=== PATIENT | female | born 1995 | race Caucasian/White ===

== ENCOUNTER 2017-05-13 21:26 | Emergency (ER) | payer OTHER ==
[~2017-05-13] VITALS: Ht 165.1 cm; Wt 90.9 kg
[2017-05-13] MEDS ORDERED: TRAZ-144 PO (21:36)
[2017-05-13] MEDS ORDERED: ALBU8HFA IH (21:36)
[2017-05-13] MEDS ORDERED: CYCL10 PO (21:36)
[2017-05-13 21:52] LABS: BASOPHILS % (AUTO) 0.3 % (0.0-2.0); EOSINOPHILS % (AUTO) 2.1 % (1.0-6.0); HEMATOCRIT 36.6 % (36-46); HEMOGLOBIN 12.3 g/dL (12.0-16.0); LYMPHOCYTES # (AUTO) 2.2 K/uL (1.0-4.8); MEAN CORPUSCULAR HEMOGLOBIN 27.3 pg (26.0-34.0); MEAN CORPUSCULAR HGB CONC 33.6 G/dL (31.0-37.0); MEAN CORPUSCULAR VOLUME 81 fL (80-100); MONOCYTES # (AUTO) 0.7 K/uL (0.1-1.0); NEUTROPHILS % (AUTO) 71.6 % (40.0-70.0); PLATELET COUNT (AUTO) 273 K/uL (150-450); RED CELL DISTRIBUTION WIDTH 14.2 % (11.5-14.5); WHITE BLOOD COUNT (AUTO) 11.1 K/uL (4.5-11.0)
[2017-05-13 21:59] LABS: ANION GAP 11 mmol/L (8-16); CALCIUM, TOTAL 9.2 mg/dL (8.8-10.5); CARBON DIOXIDE 25 mmol/L (22-29); CHLORIDE 99 mmol/L (98-107); CREATININE 0.83 mg/dL (0.60-1.30); GLOMERULAR FILTR. RATE CALC > 60 mL/min (>60); POTASSIUM 3.5 mmol/L (3.5-5.1); SODIUM SERUM 135 mmol/L (136-145); UREA NITROGEN, BLOOD 11 mg/dL (7-18)
[2017-05-13 22:01] LABS: PROTHROMBIN TIME 10.6 SEC (9.4-11.6)
[2017-05-13 22:05] LABS: ALANINE AMINOTRANSFERASE 24 U/L (12-78); ALBUMIN 4.3 g/dL (3.4-5.0); ASPARTATE AMINOTRANSFERASE 12 U/L (15-37); BILIRUBIN,TOTAL 0.4 mg/dL (0.1-1.0); TOTAL PROTEIN, SERUM 8.3 g/dL (6.4-8.2)
[2017-05-13 22:22] LABS: SALICYLATE < 2.8 mg/dL (2.8-20.0)
[2017-05-13 23:08] LABS: ACETAMINOPHEN < 2 mcg/mL (10-30)
[2017-05-14 01:30] VITALS: BP 135/66
== END 2017-05-14 02:37 | disposition home or self-care (01) ==
LOC: EMS 21:27
DX: T40.2X2A Poisoning by other opioids, intentional self-harm, initial encounter (principal); S10.91XA Abrasion of unspecified part of neck, initial encounter; S60.512A Abrasion of left hand, initial encounter; S50.311A Abrasion of right elbow, initial encounter; R11.10 Vomiting, unspecified; Y04.0XXA Assault by unarmed brawl or fight, initial encounter; Y93.89 Activity, other specified; Y92.89 Other specified places as the place of occurrence of the external cause; Y99.8 Other external cause status
CPT/HCPCS: 36415; 80053; 80307; 84703; 85025; 85610; 93005; 99285; G0480; G0481